=== PATIENT | male | born 1960 | race African-American/Black ===

== ENCOUNTER 2017-03-21 22:33 | Emergency (ER) | payer BC ==
[~2017-03-21] VITALS: Ht 172.7 cm; Wt 98.4 kg
[2017-03-21] MEDS ORDERED: Emitricitabine/Tenofovir 200/300mg tab ORAL ONE (23:30)
[2017-03-21] MEDS ORDERED: Isentress 400mg tab ORAL ONE (23:30)
[2017-03-21 23:32] VITALS: BP 140/96
[2017-03-21] MEDS ORDERED: ISENTRESS100 MG ORAL (23:38)
[2017-03-21] MEDS ORDERED: TRUVADA 200 MG1 EAC1 ORAL (23:38)
--- NOTE | 2017-03-21 23:39 | Emergency Room Report ---
History of Present Illness General Chief Complaint: General Complaint Source: Patient Present Illness HPI Is a 57-year-old male with no significant past medical history. He presents with chief complaint of HIV exposure. He had unprotected sexual intercourse with a woman that he used to date. They got back together and he had unprotected sex 2 days ago. He just found out today that she was HIV positive. He has no other complaint. He said that 2 weeks ago he had complete physical when he began HIV testing done was negative. Denies any other complaint. no discharge. Allergies: Coded Allergies: PENICILLINS (Verified Allergy, Unknown, 03/21/17) Patient History Past Medical History: see triage record, old chart reviewed Past Surgical History: none Pertinent Family History: none Social History: Denies: smoking Immunizations: other Reviewed Nursing Documentation: PMH: Agreed, PSxH: Agreed Nursing Documentation-PMH Past Medical History: No Stated History Review of Systems Eye: Denies: blurred vision, eye pain ENT: Denies: ear pain, nose congestion, throat swelling Respiratory: Denies: cough, shortness of breath Cardiovascular: Denies: chest pain, palpitations Gastrointestinal: Denies: abdominal pain, diarrhea, nausea, vomiting Musculoskeletal: Denies: back pain, joint pain Skin: Denies: rash Neurological: Denies: headache, numbness Endocrine: Denies: increased thirst, increased urine Hematologic/Lymphatic: Denies: easy bruising All Other Systems: negative except mentioned in HPI Physical Exam Vital Signs Date Time Temp Pulse Resp B/P Pulse Ox O2 Delivery O2 Flow Rate FiO2 03/21/17 22:48 97.9 72 18 147/95 98 Room Air vitals unremarkable Sp02 EP Interpretation: reviewed, normal General Appearance: well appearing, no apparent distress, alert Head: normocephalic, atraumatic Eyes: bilateral eye EOMI, bilateral eye PERRL ENT: hearing grossly normal, normal pharynx Neck: full range of motion, supple, no meningismus Respiratory: chest non-tender, lungs clear, normal breath sounds Cardiovascular #1: regular rate, rhythm, no murmur Gastrointestinal: normal bowel sounds, non tender, no mass, no organomegaly, no bruit, non-distended Musculoskeletal: back normal, gait/station normal, normal range of motion Psychiatric: mood/affect normal Skin: warm/dry Medical Decision Making Diagnostic Impression: Primary Impression: HIV exposure ER Course Patient with HIV exposure. He's going on 48 hours now. We'll give a dose of medication here. Prescription for another 30 days. Last Vital Signs Date Time Temp Pulse Resp B/P Pulse Ox O2 Delivery O2 Flow Rate FiO2 03/21/17 22:48 97.9 72 18 147/95 98 Room Air Disposition: HOME, SELF-CARE Condition: Stable Scripts Raltegravir Potassium (ISENTRESS) 100 Mg Tab.chew 400 MG ORAL TWICE A DAY for 30 Days, TAB Prov: LES RILEY M.D. 03/21/17 Emtricitabine/Tenofovir 200-300MG* (TRUVADA 200-300MG*) 1 Each Tablet 1 TAB ORAL DAILY, #30 TAB Prov: LES RILEY M.D. 03/21/17 Additional Instructions: Followup with your DrMaria Alejandra in 7 days. Abstain from sexual intercourse. You will need repeat testing done in 3-6 months. LES RILEY M.D. Mar 21, 2017 23:39
[2017-03-21 23:55] VITALS: BP 140/96
== END 2017-03-21 22:59 | disposition home or self-care (01) ==
LOC: EMR 22:55
DX: Z20.6 Contact with and (suspected) exposure to human immunodeficiency virus [HIV] (principal); Z88.0 Allergy status to penicillin
CPT/HCPCS: 86703; 99284